=== PATIENT | male | born 1960 | race Asian ===

== ENCOUNTER 2021-07-26 07:23 | Emergency (ER) | payer MEDICARE, MEDICAID ==
[~2021-07-26] VITALS: Ht 165.1 cm; Wt 31.8 kg
[~2021-07-26 07:23] MED LIST: APIX5TAB3 PO; HYDR-3965 PO; ISOS60TA71 PO; LEVO137C4 PO; ONDA4TAB6 PO; SULF1TAB49 PO
[2021-07-26 07:47] LABS: BASOPHILS # (AUTO) 0.1 X10'3 (0-0.2); BASOPHILS % (AUTO) 0.8 % (0-1); EOSINOPHILS % (AUTO) 0.7 % (0-6); HEMATOCRIT 38.7 % (42.0-52.0); HEMOGLOBIN 12.9 g/dl (14.0-17.9); LYMPHOCYTES # (AUTO) 1.7 X10'3 (1.1-4.8); LYMPHOCYTES % (AUTO) 26.4 % (21-51); MEAN CORPUSCULAR HEMOGLOBIN 29.1 PG (27.0-31.0); MEAN CORPUSCULAR HGB CONC 33.2 g/dL (33.0-36.5); MEAN CORPUSCULAR VOLUME 87.7 FL (78-98); MEAN PLATELET VOLUME 8.2 FL (7.4-10.4); MONOCYTES # (AUTO) 0.6 X10'3 (0-0.9); MONOCYTES % (AUTO) 8.8 % (2-12); NEUTROPHILS # (AUTO) 4.1 X10'3 (1.8-7.7); NEUTROPHILS % (AUTO) 63.3 % (42-75); PLATELET COUNT 195 X10'3 (140-440); RED BLOOD COUNT 4.42 X10'6 (4.70-6.10); RED CELL DISTRIBUTION WIDTH 15.5 % (11.5-14.5); WHITE BLOOD COUNT 6.6 X10'3 (4.5-11.0)
[2021-07-26] MEDS ORDERED: dexamethasone sod phosphate 10mg/ml inj ONE (07:53)
[2021-07-26] MEDS ORDERED: levetiracetam-NS 1000mg/100ml 100 ML IV ONE (07:53)
--- NOTE | 2021-07-26 07:55 | NUR ---
Came to ER bed#3 for level 1 stroke alert,unsure about time of onset. Per family he came home from [facility] around 0300. He is a [place] since there is a language barrier with family and no family here at this time. He is unresponsive and has htn and appears to be seizing.
[2021-07-26] MEDS ORDERED: niCARDipine-NS 40mg/200ml IVPB 200 ML IV ONE (07:58)
[2021-07-26 07:59] LABS: APTT 28 SECONDS (22-32)
--- NOTE | 2021-07-26 08:00 | NUR ---
On neruo assessment when I do pain stimulus to extremties he appears to move the left side more than the right side.
[2021-07-26 08:04] LABS: ALANINE AMINOTRANSFERASE 24 U/L (12-78); ALBUMIN 3.8 G/DL (3.4-5.0); ALBUMIN/GLOBULIN RATIO 0.8 (1.1-1.5); ALKALINE PHOSPHATASE 74 IU/L (46-116); ANION GAP 8 (8-16); ASPARTATE AMINO TRANSFERASE 28 U/L (10-37); BILIRUBIN,TOTAL 0.5 MG/DL (0.1-1.0); BLOOD UREA NITROGEN 21 MG/DL (7-18); BUN/CREATININE RATIO 19.3 (5.4-32.0); CHLORIDE 107 MMOL/L (99-107); CREATININE 1.09 MG/DL (0.60-1.10); GLUCOSE 103 MG/DL (70-104); POTASSIUM 3.6 MMOL/L (3.5-5.1); SODIUM 142 MMOL/L (135-145); TOTAL CARBON DIOXIDE 27.4 MMOL/L (24-32); TOTAL PROTEIN 8.5 G/DL (6.4-8.2); eGFR 69 ML/MIN
--- NOTE | 2021-07-26 08:10 | NUR ---
Around this time [facility] neurology did a telemedicine evaluation and it appears that patient is still seizing and they recommended lowering the b/p by 20% from what EMS brought him in with and goal of <140 SBP.
[2021-07-26] MEDS ORDERED: LORazepam 2 mg/ml vial ONE ×2 (08:11→08:12)
--- NOTE | 2021-07-26 08:25 | NUR ---
Around this time I called the number that EMS gave us for contact information for the patient and I was able to get patient's name and birthdate from person on phone. I had the ER doctor talk to the family and then instructed them to come to ER to help us with information.
[2021-07-26 08:48] VITALS: BP 141/93
--- NOTE | 2021-07-26 08:48 | NUR ---
Transfer to [facility] is here to transfer him there for neruo surgeon consult. His daughter is also here to see her dad and I have the pt's doctor at bedside talkig to his daughter.
== END 2021-07-26 09:02 | disposition short-term general hospital (02) ==
LOC: EDBD 07:23 → ER 07:23
DX: I62.9 Nontraumatic intracranial hemorrhage, unspecified (principal); R41.82 Altered mental status, unspecified
CPT/HCPCS: 36415; 70450; 71045; 80053; 82948; 84484; 85025; 85610; 85730; 93005; 96365; 96368; 96375; 99291; J1100; J1953; J2060; J3490; 96374; 99285

== ENCOUNTER 2023-07-17 12:58 | Outpatient (CLI) | payer MEDICARE, MEDICAID | END 2023-07-17 23:59 | disposition home or self-care (01) | LOC: RAD 12:58 | PROVIDERS: ATTEND Nurse Practitioner Primary Care | DX: J98.4 Other disorders of lung (principal); Z87.01 Personal history of pneumonia (recurrent) | CPT/HCPCS: 71046 ==